=== PATIENT | female | born 1995 | race Hispanic/Latino ===

== ENCOUNTER → 2024-02-27 | Outpatient (CLI) | payer BC | LOC: RAH 10:00 | PROVIDERS: ATTEND Obstetrics & Gynecology | DX: N63.10 Unspecified lump in the right breast, unspecified quadrant (principal) | CPT/HCPCS: 76641 ==

== ENCOUNTER → 2024-03-18 | Outpatient (CLI) | payer BC | END | disposition home or self-care (01) | LOC: RAH 08:44 | PROVIDERS: ATTEND Obstetrics & Gynecology | DX: N63.13 Unspecified lump in the right breast, lower outer quadrant (principal); Z79.01 Long term (current) use of anticoagulants | CPT/HCPCS: 19083; 88305; A4215 ×2; A4648 ==

== ENCOUNTER → 2024-12-04 | Outpatient (CLI) | payer BC, MEDICAID ==
--- NOTE | 2024-12-04 16:52 | HMCIMG ---
Right BREAST ULTRASOUND: HISTORY: lump COMPARISON: March 18, 2024 FINDINGS: The breast and axilla were evaluated. Hypoechoic nodules of the 4:00 position, 6 mm, the 7:00 position, 14 mm, previously biopsied, benign, in the 8:00 position, 10 mm. The nodules appear stable when compared with prior exam. Impression: Probably benign nodules as noted. Consider 6 month follow-up ultrasound. BI-RADS: CATEGORY 3: PROBABLE BENIGN-SHORT INTERVAL FOLLOWUP SUGGESTED Note: A negative x-ray should not delay biopsy if a dominant or clinically suspicious mass is present, since 8-10% of cancers are not identified by mammography. Dense breasts particularly, may obscure an underlying neoplasm. Thank you for allowing me to participate in this patient's care. If I can be of further assistance, please do not hesitate to call. A negative report should not delay biopsy if a clinically suspicious mass is present. Some cancers are not identified by imaging studies.
== END | disposition home or self-care (01) ==
LOC: RAH 14:16
PROVIDERS: ATTEND Nurse Practitioner Women's Health
DX: N63.14 Unspecified lump in the right breast, lower inner quadrant (principal); N63.13 Unspecified lump in the right breast, lower outer quadrant
CPT/HCPCS: 76641

== ENCOUNTER → 2025-10-07 | Outpatient (CLI) | payer BC ==
--- NOTE | 2025-10-13 11:31 | HMCIMG ---
Right BREAST ULTRASOUND: Finding: Real-time examination of the [right breast demonstrates homogeneous echotexture throughout the breast. There is a hypoechoic lesion seen at 7:00 of the right breast measuring 1.4 x 1.1 x 0.85 cm which was previously biopsy if noted to be benign. There is no other lesion seen in the right breast.. IMPRESSION: Right breast lesion which was previously biopsy at 7:00 appears to be benign and stable. Otherwise no other lesion seen. FINAL ASSESSMENT: ACR: BI-RAD- 2. Benign Finding.
== END | disposition home or self-care (01) ==
LOC: RAH 09:54
PROVIDERS: ATTEND Obstetrics & Gynecology
DX: R92.331 Mammographic heterogeneous density, right breast (principal)
CPT/HCPCS: 76641